=== PATIENT | female | born 1960 | race Caucasian/White ===

== ENCOUNTER 2018-02-28 13:23 | Emergency (ER) | payer MEDICARE ==
[~2018-02-28] VITALS: Ht 154.9 cm; Wt 77.1 kg
[~2018-02-28 13:23] MED LIST: ASPI325 PO; ASPI81EC PO; CHOL10002 PO; CYCL10 PO; ERGO50000 PO; FISH1000 PO; GABA400 PO; HYDACE5 PO; MAGCIT300 PO; NAPR375 PO; PERM5TC TOP; TRAM50 PO
[2018-02-28 14:07] LABS: BASOPHILS ABSOLUTE AUTO 0.03 K/mm3 (0.00-0.23); BASOPHILS PERCENT AUTO 0 % (0-2); EOSINOPHILS ABSOLUTE AUTO 0.09 K/mm3 (0.00-0.68); EOSINOPHILS PERCENT AUTO 1 % (0-6); Hematocrit 36.2 % (33.0-51.0); Hemoglobin 12.3 g/dL (11.5-16.0); IMMATURE GRAN ABSOLUTE AUTO 0.02 K/mm3 (0.00-0.10); IMMATURE GRAN PERCENT AUTO 0 % (0-1); LYMPHOCYTES ABSOLUTE AUTO 2.62 K/mm3 (0.84-5.20); LYMPHOCYTES PERCENT AUTO 39 % (21-46); MONOCYTES ABSOLUTE AUTO 0.41 K/mm3 (0.16-1.47); MONOCYTES PERCENT AUTO 6 % (4-13); Mean Corpuscular HGB 30.4 pg (26.0-34.0); Mean Corpuscular Volume 89 fL (80-100); Mean Platelet Volume 9.3 fL (9.1-12.4); NEUTROPHILS ABSOLUTE AUTO 3.59 K/mm3 (1.96-9.15); NEUTROPHILS PERCENT AUTO 53 % (41-73); Platelet Count 187 K/mm3 (150-400); RDW Coefficient Variation 12.8 % (11.7-14.2); RDW Standard Deviation 41.5 fL (35.1-46.3); Red Blood Cell Count 4.05 M/mm3 (3.80-5.20); White Blood Cell Count 6.76 K/mm3 (4.00-11.30)
[2018-02-28 14:25] LABS: Alanine Aminotransfer (ALT/SGP 35 U/L (12-78); Albumin, Blood 3.4 g/dL (3.4-5.0); Albumin/Globulin Ratio 0.8 (0.8-1.8); Alk Phos 180 U/L (50-136); Anion Gap 8 mmol/L (6-16); Aspartate Aminotrans (AST/SGOT 32 U/L (12-37); Bilirubin, Total 0.5 mg/dL (0.1-1.0); Blood Urea Nitrogen 10 mg/dL (8-24); Bun/Creatinine Ratio 13.4 (12.0-20.0); CO2, Blood 25 mmol/L (21-32); Calcium, Blood 8.4 mg/dL (8.5-10.1); Chloride, Blood 109 mmol/L (98-108); Creatinine, Blood 0.74 mg/dL (0.40-1.00); Globulin, Blood 4.3 g/dL (2.2-4.0); Glomerular Filtration Rate >60 (60-); Glucose, Blood 101 mg/dL (70-99); Potassium, Blood 3.5 mmol/L (3.5-5.5); Sodium, Blood 142 mmol/L (136-145); Total Protein, Blood 7.7 g/dL (6.4-8.2); Troponin I <0.015 ng/mL (0.000-0.040)
[2018-02-28] MEDS ORDERED: NP THYROID15 MG PO (14:53)
[2018-02-28] MEDS ORDERED: ATOR40TA PO (14:54)
[2018-02-28] MEDS ORDERED: Omeprazole20 M1 PO (15:32)
== END 2018-02-28 15:48 | disposition home or self-care (01) ==
LOC: ER 13:23
PROVIDERS: Emergency Medicine
DX: R07.2 Precordial pain (principal); Z79.899 Other long term (current) drug therapy; Z79.82 Long term (current) use of aspirin; F41.9 Anxiety disorder, unspecified
CPT/HCPCS: 36415; 71046; 80053; 84484; 85025; 93005; 93010; 99284-25

== ENCOUNTER → 2021-02-02 | Outpatient (CLI) | payer MEDICARE ==
[~2021-02-02] MED LIST changes: +ATOR40TA PO; +NP THYROID15 MG PO; +Omeprazole20 M1 PO
== END | disposition home or self-care (01) ==
LOC: LAB 10:00 → LAB SHORT 10:00
DX: N32.89 Other specified disorders of bladder (principal); R39.15 Urgency of urination
CPT/HCPCS: 87077; 87086; 87186

== ENCOUNTER 2022-05-15 08:32 | Day surgery (SDC) | payer MEDICARE ==
[~2022-05-15] VITALS: Ht 154.9 cm; Wt 73.0 kg
--- NOTE | 2022-05-15 10:53 | NUR ---
05/15/22 1053 BARBARA ABDULLAHI PT NOW STATES ARM IS STILL SORE FROM BP CUFF, DR PRINCE AWARE.
== END 2022-05-15 11:02 | disposition home or self-care (01) ==
LOC: ORSCSDS 08:32
DX: Z12.11 Encounter for screening for malignant neoplasm of colon (principal); K74.60 Unspecified cirrhosis of liver; D12.5 Benign neoplasm of sigmoid colon; D12.3 Benign neoplasm of transverse colon; D12.2 Benign neoplasm of ascending colon; D12.8 Benign neoplasm of rectum; K57.30 Diverticulosis of large intestine without perforation or abscess without bleeding; Z86.73 Personal history of transient ischemic attack (TIA), and cerebral infarction without residual deficits; E03.9 Hypothyroidism, unspecified; Z79.899 Other long term (current) drug therapy
CPT/HCPCS: 88305; J2704; J7120

== ENCOUNTER 2024-05-24 10:47 | Inpatient (IN) | payer MEDICARE ==
[~2024-05-24] VITALS: Ht 154.9 cm; Wt 79.0 kg
[2024-05-24 11:25] LABS: BASOPHILS ABSOLUTE AUTO 0.02 K/mm3 (0.00-0.23); BASOPHILS PERCENT AUTO 0 % (0-2); EOSINOPHILS PERCENT AUTO 0 % (0-6); Hematocrit 30.3 % (33.0-51.0); Hemoglobin 10.6 g/dL (11.5-16.0); IMMATURE GRAN ABSOLUTE AUTO 0.05 K/mm3 (0.00-0.10); IMMATURE GRAN PERCENT AUTO 1 % (0-1); LYMPHOCYTES ABSOLUTE AUTO 1.34 K/mm3 (0.84-5.20); LYMPHOCYTES PERCENT AUTO 12 % (21-46); MONOCYTES ABSOLUTE AUTO 0.35 K/mm3 (0.16-1.47); MONOCYTES PERCENT AUTO 3 % (4-13); Mean Corpuscular HGB 31.5 pg (26.0-34.0); Mean Corpuscular Volume 90 fL (80-100); Mean Platelet Volume 9.8 fL (9.1-12.4); NEUTROPHILS ABSOLUTE AUTO 9.22 K/mm3 (1.96-9.15); NEUTROPHILS PERCENT AUTO 84 % (41-73); Platelet Count 154 K/mm3 (150-400); RDW Coefficient Variation 14.3 % (11.7-14.2); RDW Standard Deviation 46.4 fL (35.1-46.3); Red Blood Cell Count 3.36 M/mm3 (3.80-5.20); White Blood Cell Count 10.98 K/mm3 (4.00-11.30)
[2024-05-24] MEDS ORDERED: Pantoprazole Sodium 40 MG Injection IV ONE (11:35)
[2024-05-24] MEDS ORDERED: Pantoprazole Sodium 40 MG in NS 50 ML IV SCH (11:35)
[2024-05-24] MEDS ORDERED: NP THYROID (11:37)
[2024-05-24] MEDS ORDERED: ACYC200 PO (11:38)
[2024-05-24 11:42] LABS: Albumin, Blood 3.1 g/dL (3.4-5.0); Albumin/Globulin Ratio 0.7 (0.8-1.8); Bun/Creatinine Ratio 41.1 (12.0-20.0); Calcium, Blood 9.1 mg/dL (8.5-10.1); Creatinine, Blood 0.8 mg/dL (0.40-1.00); Globulin, Blood 4.2 g/dL (2.2-4.0); Potassium, Blood 4.5 mmol/L (3.5-5.5); Total Protein, Blood 7.3 g/dL (6.4-8.2)
[2024-05-24 11:45] LABS: International Normalized Ratio 1.33; Prothrombin Time Results 13.9 Sec (9.7-11.5)
[2024-05-24] MEDS ORDERED: FLU VACC TS2024-25(6MOS UP)/PF 45 MCG/0.5 ML SYRINGE IM ONE (13:55)
[2024-05-24] MEDS ORDERED: CefTRIAXone Sodium 1,000 MG in NS 100 ML IV SCH (14:00)
[2024-05-24] MEDS ORDERED: Gabapentin 400 MG Cap PO SCH ×2 (14:00→21:00)
[2024-05-24 15:31] LABS: Hematocrit 28.4 % (33.0-51.0); Hemoglobin 9.9 g/dL (11.5-16.0)
[2024-05-24 16:19] VITALS: BP 122/74
--- NOTE | 2024-05-24 17:53 | NUR ---
SHIFT SUMMARY PT REMAINS ALERT AND ORIENTED. BP STABLE. HR REMAINS NSR. O2 SATS REMAIN ABOVE 90% ON RA. PT COMPLAINS THAT THE NOISE OF THE IV PUMP IS CAUSING A HEADACHE. PT EDUCATED ON IMPORTANCE OF PROTONIX GTT. TELEVISION TURNED ON TO HELP DISTRACT PT. PT ABLE TO AMBULATE TO BATHROOM NEEDED WITH SBA TO VOID. NO BM OR EMESIS SINCE ADMISSION. WILL REPORT OFF TO ONCOMING JANELL
[2024-05-24 19:26] VITALS: BP 112/60
[2024-05-24] MEDS ORDERED: Octreotide Acetate 50 MCG in NS 50 ML IV STA (19:48)
[2024-05-24 20:20] LABS: Hematocrit 25.6 % (33.0-51.0); Hemoglobin 8.9 g/dL (11.5-16.0)
[2024-05-24] MEDS ORDERED: Octreotide Acetate 500 MCG in NS 250 ML IV SCH (20:30)
[2024-05-25] VITALS (14 sets, daily range): BP systolic 85–111; BP diastolic 48–67
[2024-05-25 05:22] LABS: Hematocrit 26.4 % (33.0-51.0); Hemoglobin 8.5 g/dL (11.5-16.0); Mean Corpuscular HGB 30.8 pg (26.0-34.0); Mean Corpuscular HGB Conc 32.2 g/dL (31.5-36.5); Mean Platelet Volume 10.5 fL (9.1-12.4); Platelet Count 101 K/mm3 (150-400); RDW Coefficient Variation 14.6 % (11.7-14.2); RDW Standard Deviation 50.4 fL (35.1-46.3); Red Blood Cell Count 2.76 M/mm3 (3.80-5.20)
[2024-05-25 05:30] LABS: Mean Corpuscular Volume 96 fL (80-100)
[2024-05-25 05:40] LABS: Bun/Creatinine Ratio 33.4 (12.0-20.0); Calcium, Blood 8.8 mg/dL (8.5-10.1); Creatinine, Blood 0.93 mg/dL (0.40-1.00); Potassium, Blood 4.1 mmol/L (3.5-5.5)
[2024-05-25] MEDS ORDERED: Thyroid 60 MG Tab PO SCH ×2 (06:00→08:07)
[2024-05-25] MEDS ORDERED: Lactated Ringer's 1,000 ML IV SCH (11:40)
--- NOTE | 2024-05-25 12:12 | NUR ---
History, Chart, Medications and Allergies reviewed before start of procedure. Pre-Op teaching done. Pt verbalizes understanding. Patient confirms NPO status and agrees with scheduled surgery.
[2024-05-25] MEDS ORDERED: propofoL 20 ML IV ONE (12:19)
[2024-05-25] MEDS ORDERED: Midazolam HCl 1MG / ML 2ML Vial ONE (12:23)
[2024-05-25 12:26] LABS: Hematocrit 23.5 % (33.0-51.0)
--- NOTE | 2024-05-25 13:02 | NUR ---
05/25/24 Karyna Rivera CONFIRMED AND REVIEWED H&P, MEDCICATIONS, ALLERGIES, MEDICAL HISTORY, RESPIRATORY HISTORY, VITAL SIGNS, 3-LEAD EKG, CONSENTS, AND PHYSICIAN ORDERS. PATIENT CONFIRMS NPO STATUS AND AGREES WITH SCHEDULED PROCEDURE. MONITOR INTACT WITH CONTINUOUS PULSE OXIMETRY, CAPNOGRAPHY, 3-LEAD EKG, INTERMITTENT BP. SUPPLEMENTAL O2 TO BE TITRATED THROUGHOUT PROCEDURE TO MAINTAIN O2 SATURATION ABOVE 90%. PATIENT DETERMINED TO BE ASA APPROPRIATE FOR PROPOFOL SEDATION PRIOR TO START OF PROCEDURE BY DR. MORRISON.
[2024-05-25] MEDS ORDERED: THYROID30 MG PO (14:37)
--- NOTE | 2024-05-25 15:12 | NUR ---
DR. SERRANO CALLED ABOUT HYPOTENSION POST EGD, HE WOULD LIKE TO START THE PT ON NS 150CC/HR FOR A TOTAL OF ONE DAY.
[2024-05-25] MEDS ORDERED: NS 1,000 ML IV SCH (15:15)
--- NOTE | 2024-05-25 17:38 | NUR ---
SHIFT SUMMARY THE PT IS ORIENTED X4, AND WAS VERY ALERT THIS MORNING. SHE WENT FOR AN EGD LATE MORNING/EARLY AFTERNOON AND CAME BACK VERY SOMULENT. AROUND 1600 SHE BECAME MORE ALERT, TOLERATING PO INTAKE. HER BLOOD PRESSURE HAS BEEN SOFT, BUT WERE LOW AFTER HER EGD. DR. SERRANO ORDERED FLUIDS TO HELP. SEE PREVIOUS NOTE. ON TELE THE PT HAS BEEN SR AND DENIES ANY ANGINA OR CHEST PRESSURE. SHE IS ON RA W/ SP02 >93%, SHE DENIES ANY SOB. THE PT HAD AN ABD ULTRASOUND TODAY AND RESULTS PENDING. THREE SIDE RAILS REMAIN UP, CALL LIGHT IS IN REACH, AND BED IN LOW.
[2024-05-25 19:30] LABS: Hematocrit 20.8 % (33.0-51.0); Hemoglobin 7.1 g/dL (11.5-16.0)
[2024-05-26] VITALS (12 sets, daily range): BP systolic 82–115; BP diastolic 50–67
[2024-05-26 02:32] LABS: Hematocrit 19.9 % (33.0-51.0); Hemoglobin 6.9 g/dL (11.5-16.0); Mean Corpuscular HGB 32.2 pg (26.0-34.0); Mean Corpuscular HGB Conc 34.7 g/dL (31.5-36.5); Mean Corpuscular Volume 93 fL (80-100); Mean Platelet Volume 10.2 fL (9.1-12.4); Platelet Count 77 K/mm3 (150-400); RDW Coefficient Variation 14.4 % (11.7-14.2); RDW Standard Deviation 47.7 fL (35.1-46.3); Red Blood Cell Count 2.14 M/mm3 (3.80-5.20); White Blood Cell Count 2.98 K/mm3 (4.00-11.30)
[2024-05-26] MEDS ORDERED: NS 250 ML IV PRN (03:00)
--- NOTE | 2024-05-26 05:18 | NUR ---
PTS HGB RESULTED TO 6.9. RESIDENT NOTIFIED. 1 UNIT PRBCS ORDERED AND TRANSFUSING. NO TRANSFUSION REACTIONS NOTED.
[2024-05-26] MEDS ORDERED: Pantoprazole Sodium 40 MG Tab PO SCH (06:00)
--- NOTE | 2024-05-26 06:07 | NUR ---
PT A&OX4. PTS BPS LOW THROUGHOUT SHIFT. RESIDENT AWARE THAT HGB CONTINUED TO TREND DOWN TO 6.9. ONE UNIT PRBCs TRANFUSING CURRENTLY WITH NO ISSUES. PT CONTINUES TO RECIEVE NS @150CC/HR. PT DID C/O A SLIGHT HEADACHE WITH INTERMITTANT NAUSEA BUT STATES IT IS GOING AWAY AND DOES NOT WANT TO TAKE ANY MEDICATIONS. PT ABLE TO AMBULATED TO BATHROOM NEEDED SBA. NO FURTHER QUESTIONS OR CONCERNS AT THIS TIME. CALL MITCHELL WITHIN REACH.
[2024-05-26 08:27] LABS: Hematocrit 24.9 % (33.0-51.0); Hemoglobin 8.5 g/dL (11.5-16.0); Mean Corpuscular HGB 31.3 pg (26.0-34.0); Mean Corpuscular HGB Conc 34.1 g/dL (31.5-36.5); Mean Corpuscular Volume 92 fL (80-100); Mean Platelet Volume 9.7 fL (9.1-12.4); NRBC ABSOLUTE 0.02 K/mm3 (0.00-0.02); NRBC Auto 0.6 /100 WBC (0.0-0.2); Platelet Count 78 K/mm3 (150-400); RDW Coefficient Variation 14.1 % (11.7-14.2); RDW Standard Deviation 46.5 fL (35.1-46.3); Red Blood Cell Count 2.72 M/mm3 (3.80-5.20); White Blood Cell Count 3.19 K/mm3 (4.00-11.30)
--- NOTE | 2024-05-26 10:41 | NUR ---
ASSUMING CARE ASSUMED CARE OF THIS PATIENT AT 0730. PATIENT IS A+O X4, ABLE TO MAKE NEEDS KNOWN. SBA TO BATHROOM NEEDS ASSITANCE W/ LINES. UP TO CHAIR FOR BREAKFAST, LIEN CHANGED. CALL LIGHT IN REACH, WILL CONTINUE TO TREAT.
[2024-05-26 15:16] LABS: Hematocrit 24.6 % (33.0-51.0); Hemoglobin 8.7 g/dL (11.5-16.0)
--- NOTE | 2024-05-26 16:51 | NUR ---
SHIFT SUMMARY PATIENT IS A+O X4,A BLE TO MAKE NEEDS KNOWN. MOVES ALL EXTERMITIES EQUALLY IN BED, SBA TO THE BATH ROOM. UP TO CHAIR THIS AM. DENIES N/V THIS SHIFT. HGB CONTINUES TO TREND UP THIS SHIFT FROM 6.9 TO 8.5, 1500 DRAW 8.7. PATIENT DENIES ANY SIGNS OR BLEEDING, THIS RN SEEN NO SIGNS OF BLEEDING. VSS THIS SHIFT WITH SYS B/P IN THE LOW 100S. CALL LIGHT IN REACH OF PATIENT, WILL CONTINUE TO TREAT UNTIL END OF SHIFT.
[2024-05-27 04:15] VITALS: BP 90/53
[2024-05-27 04:20] LABS: Hematocrit 24.4 % (33.0-51.0); Hemoglobin 8.5 g/dL (11.5-16.0); Mean Corpuscular HGB 31.8 pg (26.0-34.0); Mean Corpuscular HGB Conc 34.8 g/dL (31.5-36.5); Mean Corpuscular Volume 91 fL (80-100); Mean Platelet Volume 9.5 fL (9.1-12.4); Platelet Count 79 K/mm3 (150-400); RDW Coefficient Variation 14.3 % (11.7-14.2); RDW Standard Deviation 47.3 fL (35.1-46.3); Red Blood Cell Count 2.67 M/mm3 (3.80-5.20)
--- NOTE | 2024-05-27 06:24 | NUR ---
SHIFT SUMMARY PT HAD AN OVERALL UNEVENTFUL NIGHT. ENDORSES GETTING GOOD REST THIS SHIFT. NO BM'S THIS SHIFT. NO S/S BLEEDING. HGB REMAINS STABLE.
[2024-05-27 07:37] VITALS: BP 104/57
[2024-05-27 09:04] LABS: Percent Saturation 20.5 % (15.0-50.0)
--- NOTE | 2024-05-27 10:06 | NUR ---
ASSUMING CARE ASSUMED CARE OF THIS PATIENT AT 0715. PATIENT WAS RESTING IN BED WITH EYES CLOSED. PATIENT AWOKE WITH NO ISSUES FOR MORNING ASSESSMENT AND MEDICATION PASS. VSS. DR. SERRANO ROUNDED ON PATIENT THIS AM, POSSIBLE DISCHARGE LATER TODAY. CALL LIGHT IN REACH OF PATIENT WILL CONTINUE TO TREAT.
[2024-05-27] MEDS ORDERED: FERSU300 PO (11:24)
[2024-05-27] MEDS ORDERED: PANT40 PO (11:24)
--- NOTE | 2024-05-27 13:51 | NUR ---
NURSE NOTE PATIENT DISCHARGE PACKET WENT OVER WITH PT. PERSONAL BELONGINGS GATHERED AND PLACED INTO BAG. MATERIALS AND PROCESSES MANAGER TOOK PATIENT OUT TO CAR OZZIE WHEEL CHAIR.
== END 2024-05-27 13:29 | disposition home or self-care (01) | DRG 442 ==
LOC: ER 10:47 → PCU 10:48
PROVIDERS: Emergency Medicine; ADMIT Internal Medicine
PROC: 0DB68ZX Excision of Stomach, Via Natural or Artificial Opening Endoscopic, Diagnostic (ICD-10-PCS; 2024-05-25)
PROC: 30233N1 Transfusion of Nonautologous Red Blood Cells into Peripheral Vein, Percutaneous Approach (ICD-10-PCS; principal; 2024-05-26)
DX: K76.6 Portal hypertension (principal); D62 Acute posthemorrhagic anemia; K92.2 Gastrointestinal hemorrhage, unspecified; K74.60 Unspecified cirrhosis of liver; K75.81 Nonalcoholic steatohepatitis (NASH); K31.89 Other diseases of stomach and duodenum; Z66 Do not resuscitate; G62.9 Polyneuropathy, unspecified; E03.9 Hypothyroidism, unspecified; F41.9 Anxiety disorder, unspecified; Z88.8 Allergy status to other drugs, medicaments and biological substances; Z79.899 Other long term (current) drug therapy; Z87.19 Personal history of other diseases of the digestive system; Z86.73 Personal history of transient ischemic attack (TIA), and cerebral infarction without residual deficits; Z90.710 Acquired absence of both cervix and uterus; Z98.890 Other specified postprocedural states
CPT/HCPCS: 36415; 36430; 76700; 80048; 80053; 82105; 82728; 83540; 83550; 85014; 85018; 85025; 85027; 85610; 85730; 86850; 86900; 86901; 86923; 88305; 88342; 93005; 93010; 96365; 96366; 96368; 96375; 96376; 99285-25; A9270; C1751; G0378; J0696; J2250; J2354; J2470; J2704; J7030; J7050; J7120; P9016

== ENCOUNTER → 2024-06-03 | Outpatient (CLI) | payer MEDICARE ==
[~2024-06-03] MED LIST changes: +ACYC200 PO; +FERSU300 PO; +NP THYROID; +PANT40 PO; +THYROID30 MG PO
[2024-06-03 18:52] LABS: BASOPHILS ABSOLUTE AUTO 0.02 K/mm3 (0.00-0.23); BASOPHILS PERCENT AUTO 0 % (0-2); EOSINOPHILS ABSOLUTE AUTO 0.02 K/mm3 (0.00-0.68); EOSINOPHILS PERCENT AUTO 0 % (0-6); Hematocrit 33.4 % (33.0-51.0); Hemoglobin 10.9 g/dL (11.5-16.0); IMMATURE GRAN ABSOLUTE AUTO 0.02 K/mm3 (0.00-0.10); IMMATURE GRAN PERCENT AUTO 0 % (0-1); LYMPHOCYTES ABSOLUTE AUTO 1.18 K/mm3 (0.84-5.20); LYMPHOCYTES PERCENT AUTO 23 % (21-46); MONOCYTES ABSOLUTE AUTO 0.56 K/mm3 (0.16-1.47); MONOCYTES PERCENT AUTO 11 % (4-13); Mean Corpuscular HGB 30.6 pg (26.0-34.0); Mean Corpuscular HGB Conc 32.6 g/dL (31.5-36.5); Mean Corpuscular Volume 94 fL (80-100); Mean Platelet Volume 10.4 fL (9.1-12.4); NEUTROPHILS ABSOLUTE AUTO 3.35 K/mm3 (1.96-9.15); NEUTROPHILS PERCENT AUTO 65 % (41-73); Platelet Count 101 K/mm3 (150-400); RDW Coefficient Variation 14.6 % (11.7-14.2); RDW Standard Deviation 50.2 fL (35.1-46.3); Red Blood Cell Count 3.56 M/mm3 (3.80-5.20); White Blood Cell Count 5.15 K/mm3 (4.00-11.30)
[2024-06-03 19:36] LABS: Percent Saturation 8.7 % (15.0-50.0)
== END | disposition home or self-care (01) ==
LOC: LAB 17:46 → LAB SHORT 17:46
PROVIDERS: Nurse Practitioner Family
DX: D50.0 Iron deficiency anemia secondary to blood loss (chronic) (principal)
CPT/HCPCS: 82728; 83540; 83550; 85025

== ENCOUNTER → 2024-07-01 | Outpatient (CLI) | payer MEDICARE ==
[2024-07-01 14:17] LABS: BASOPHILS ABSOLUTE AUTO 0.01 K/mm3 (0.00-0.23); BASOPHILS PERCENT AUTO 0 % (0-2); EOSINOPHILS ABSOLUTE AUTO 0.08 K/mm3 (0.00-0.68); EOSINOPHILS PERCENT AUTO 2 % (0-6); Hematocrit 33.8 % (33.0-51.0); IMMATURE GRAN ABSOLUTE AUTO 0.01 K/mm3 (0.00-0.10); IMMATURE GRAN PERCENT AUTO 0 % (0-1); LYMPHOCYTES ABSOLUTE AUTO 1.05 K/mm3 (0.84-5.20); LYMPHOCYTES PERCENT AUTO 31 % (21-46); MONOCYTES ABSOLUTE AUTO 0.23 K/mm3 (0.16-1.47); MONOCYTES PERCENT AUTO 7 % (4-13); Mean Corpuscular HGB 30.5 pg (26.0-34.0); Mean Corpuscular HGB Conc 32.5 g/dL (31.5-36.5); Mean Corpuscular Volume 94 fL (80-100); Mean Platelet Volume 10.2 fL (9.1-12.4); NEUTROPHILS PERCENT AUTO 59 % (41-73); Platelet Count 109 K/mm3 (150-400); RDW Coefficient Variation 14.3 % (11.7-14.2); RDW Standard Deviation 49.2 fL (35.1-46.3); Red Blood Cell Count 3.61 M/mm3 (3.80-5.20); White Blood Cell Count 3.38 K/mm3 (4.00-11.30)
[2024-07-01 14:19] LABS: Percent Saturation 29.8 % (15.0-50.0)
== END ==
LOC: LAB 12:53 → LAB SHORT 12:53
PROVIDERS: Nurse Practitioner Family
DX: D50.0 Iron deficiency anemia secondary to blood loss (chronic) (principal)
CPT/HCPCS: 82728; 83540; 83550; 85025

== ENCOUNTER → 2024-07-08 | Outpatient (CLI) | payer MEDICARE ==
[2024-07-08 19:39] LABS: BASOPHILS ABSOLUTE AUTO 0.02 K/mm3 (0.00-0.23); BASOPHILS PERCENT AUTO 0 % (0-2); EOSINOPHILS ABSOLUTE AUTO 0.07 K/mm3 (0.00-0.68); EOSINOPHILS PERCENT AUTO 2 % (0-6); Hematocrit 34.5 % (33.0-51.0); Hemoglobin 11.4 g/dL (11.5-16.0); IMMATURE GRAN ABSOLUTE AUTO 0.01 K/mm3 (0.00-0.10); IMMATURE GRAN PERCENT AUTO 0 % (0-1); LYMPHOCYTES ABSOLUTE AUTO 1.26 K/mm3 (0.84-5.20); LYMPHOCYTES PERCENT AUTO 28 % (21-46); MONOCYTES ABSOLUTE AUTO 0.31 K/mm3 (0.16-1.47); MONOCYTES PERCENT AUTO 7 % (4-13); Mean Corpuscular HGB 30.5 pg (26.0-34.0); Mean Corpuscular Volume 92 fL (80-100); Mean Platelet Volume 10.1 fL (9.1-12.4); NEUTROPHILS ABSOLUTE AUTO 2.87 K/mm3 (1.96-9.15); NEUTROPHILS PERCENT AUTO 63 % (41-73); Platelet Count 114 K/mm3 (150-400); RDW Standard Deviation 47.3 fL (35.1-46.3); Red Blood Cell Count 3.74 M/mm3 (3.80-5.20); White Blood Cell Count 4.54 K/mm3 (4.00-11.30)
[2024-07-10 18:29] LABS: HEPATITIS C AB CIA INTERP Low Pos (Negative)
[2024-07-11 16:43] LABS: HCV QNT BY NAAT (IU/ML) Not Detected; HCV QNT BY NAAT (LOG IU/ML) Not Detected; HCV QNT BY NAAT INTERP Not Detected (Not Detected)
== END ==
LOC: LAB SHORT 18:35 → LAB 18:35
PROVIDERS: Nurse Practitioner Family
DX: Z11.59 Encounter for screening for other viral diseases (principal); D50.0 Iron deficiency anemia secondary to blood loss (chronic)
CPT/HCPCS: 85025; 86803; 87522

== ENCOUNTER 2025-06-08 10:31 | Emergency (ER) | payer MEDICARE ==
[~2025-06-08] VITALS: Ht 154.9 cm; Wt 72.6 kg
[2025-06-08 11:36] LABS: BASOPHILS ABSOLUTE AUTO 0.02 K/mm3 (0.00-0.23); BASOPHILS PERCENT AUTO 0 % (0-2); EOSINOPHILS ABSOLUTE AUTO 0.04 K/mm3 (0.00-0.68); EOSINOPHILS PERCENT AUTO 1 % (0-6); Hematocrit 32.7 % (33.0-51.0); Hemoglobin 11.1 g/dL (11.5-16.0); IMMATURE GRAN ABSOLUTE AUTO 0.04 K/mm3 (0.00-0.10); IMMATURE GRAN PERCENT AUTO 1 % (0-1); LYMPHOCYTES ABSOLUTE AUTO 1.19 K/mm3 (0.84-5.20); LYMPHOCYTES PERCENT AUTO 20 % (21-46); MONOCYTES ABSOLUTE AUTO 0.44 K/mm3 (0.16-1.47); MONOCYTES PERCENT AUTO 7 % (4-13); Mean Corpuscular HGB Conc 33.9 g/dL (31.5-36.5); Mean Corpuscular Volume 101 fL (80-100); NEUTROPHILS ABSOLUTE AUTO 4.26 K/mm3 (1.96-9.15); NEUTROPHILS PERCENT AUTO 71 % (41-73); NRBC ABSOLUTE 0.00 K/mm3 (0.00-0.02); NRBC Auto 0.0 /100 WBC (0.0-0.2); Platelet Count 103 K/mm3 (150-400); RDW Coefficient Variation 17.3 % (11.7-14.2); RDW Standard Deviation 63.7 fL (35.1-46.3)
[2025-06-08 11:51] LABS: Alanine Aminotransfer (ALT/SGP 21.0 U/L (12-78); Albumin, Blood 2.5 g/dL (3.4-5.0); Albumin/Globulin Ratio 0.5 (0.8-1.8); Anion Gap 13.0 mmol/L (3-11); Aspartate Aminotrans (AST/SGOT 60.0 U/L (12-37); Bilirubin, Total 5.1 mg/dL (0.1-1.0); Blood Urea Nitrogen 8.0 mg/dL (8-24); CO2, Blood 21.0 mmol/L (21-32); Calcium, Blood 8.4 mg/dL (8.5-10.1); Chloride, Blood 107.0 mmol/L (98-108); Creatinine, Blood 0.71 mg/dL (0.40-1.00); Globulin, Blood 4.6 g/dL (2.2-4.0); Glucose, Blood 141.0 mg/dL (70-99); Potassium, Blood 3.6 mmol/L (3.5-5.5); Sodium, Blood 137.0 mmol/L (136-145); Total Protein, Blood 7.1 g/dL (6.4-8.2)
[2025-06-08 11:57] LABS: Prothrombin Time Results 18.3 Sec (9.7-11.5)
[2025-06-08 12:12] LABS: Source, Urine Clean Catch
[2025-06-08 12:20] LABS: Bilirubin, Urine Neg (Neg); Color, Urine Yellow (P-Yellow); Glucose Qualitative, Urine Neg (Neg); Ketones, Urine Neg (Neg); Leukocyte Esterase, Urine Neg (Neg); Protein, Urine 1+ (Neg); Specific Gravity, Urine 1.015 (1.003-1.022); Urobilinogen, Urine 2+ (Normal)
[2025-06-08 13:04] LABS: Red Blood Cells, Urine 0-2 /hpf (0-2); White Blood Cells, Urine 0-2 /hpf (0-5)
[2025-06-08 13:20] LABS: Bilirubin, Direct 1.8 mg/dL (0.0-0.3)
[2025-06-08 14:25] LABS: Automated BF WBC Count 0.229 K/mm3 (0-999)
[2025-06-08 14:46] LABS: Glucose, Body Fluid 130 mg/dL; RBC Count, Body Fluid 51 /mm3 (0-0)
[2025-06-08 14:47] LABS: Color, Body Fluid Yellow (None-Yellow)
[2025-06-08 14:58] VITALS: BP 112/54
[2025-06-08 16:00] LABS: Lymphocytes, Fluid 49.0 % (0.0-18.0); Monocytes/Mononuclear, Fluid 30.0 % (0.0-50.0); Neutrophils, Fluid 10.0 % (0.0-25.0); Total Cell Count, Body Fluid 100
== END 2025-06-08 11:26 | disposition home or self-care (01) ==
LOC: ER 10:31
PROVIDERS: Physician Assistant
DX: R18.8 Other ascites (principal); E03.9 Hypothyroidism, unspecified; Z86.73 Personal history of transient ischemic attack (TIA), and cerebral infarction without residual deficits; Z79.899 Other long term (current) drug therapy; Z88.1 Allergy status to other antibiotic agents
CPT/HCPCS: 49083; 51798; 71046; 74177; 80053; 81001; 82248; 82945; 83690; 84157; 85025; 85610; 87070; 87205; 89051; 99284-25; Q9967

== ENCOUNTER 2025-06-15 09:32 | Emergency (ER) | payer MEDICARE ==
[~2025-06-15] VITALS: Ht 154.9 cm; Wt 68.0 kg
[2025-06-15 10:06] LABS: BASOPHILS ABSOLUTE AUTO 0.03 K/mm3 (0.00-0.23); BASOPHILS PERCENT AUTO 1 % (0-2); EOSINOPHILS ABSOLUTE AUTO 0.08 K/mm3 (0.00-0.68); EOSINOPHILS PERCENT AUTO 1 % (0-6); Hematocrit 34.7 % (33.0-51.0); Hemoglobin 11.6 g/dL (11.5-16.0); IMMATURE GRAN ABSOLUTE AUTO 0.02 K/mm3 (0.00-0.10); IMMATURE GRAN PERCENT AUTO 0 % (0-1); LYMPHOCYTES ABSOLUTE AUTO 1.41 K/mm3 (0.84-5.20); LYMPHOCYTES PERCENT AUTO 23 % (21-46); MONOCYTES ABSOLUTE AUTO 0.43 K/mm3 (0.16-1.47); MONOCYTES PERCENT AUTO 7 % (4-13); Mean Corpuscular HGB Conc 33.4 g/dL (31.5-36.5); Mean Corpuscular Volume 102 fL (80-100); NEUTROPHILS ABSOLUTE AUTO 4.06 K/mm3 (1.96-9.15); NEUTROPHILS PERCENT AUTO 67 % (41-73); NRBC ABSOLUTE 0.00 K/mm3 (0.00-0.02); NRBC Auto 0.0 /100 WBC (0.0-0.2); Platelet Count 105 K/mm3 (150-400); RDW Coefficient Variation 17.2 % (11.7-14.2); RDW Standard Deviation 64.4 fL (35.1-46.3)
[2025-06-15 10:23] LABS: Prothrombin Time Results 17.7 Sec (9.7-11.5)
[2025-06-15 10:33] LABS: Alanine Aminotransfer (ALT/SGP 24.0 U/L (12-78); Albumin, Blood 2.4 g/dL (3.4-5.0); Albumin/Globulin Ratio 0.5 (0.8-1.8); Anion Gap 11.0 mmol/L (3-11); Aspartate Aminotrans (AST/SGOT 64.0 U/L (12-37); Bilirubin, Total 5.4 mg/dL (0.1-1.0); Blood Urea Nitrogen 8.0 mg/dL (8-24); CO2, Blood 22.0 mmol/L (21-32); Calcium, Blood 8.4 mg/dL (8.5-10.1); Chloride, Blood 108.0 mmol/L (98-108); Creatinine, Blood 0.71 mg/dL (0.40-1.00); Globulin, Blood 4.7 g/dL (2.2-4.0); Glucose, Blood 154.0 mg/dL (70-99); Potassium, Blood 4.1 mmol/L (3.5-5.5); Sodium, Blood 137.0 mmol/L (136-145); Total Protein, Blood 7.1 g/dL (6.4-8.2)
[2025-06-15] MEDS ORDERED: Lasix20 MG PO (16:14)
[2025-06-15 16:33] VITALS: BP 129/84
== END 2025-06-15 16:33 | disposition home or self-care (01) ==
LOC: ER 09:32
PROVIDERS: Emergency Medicine
DX: R18.8 Other ascites (principal); Z88.8 Allergy status to other drugs, medicaments and biological substances; Z79.899 Other long term (current) drug therapy; Z90.710 Acquired absence of both cervix and uterus
CPT/HCPCS: 76705; 80053; 85025; 85610; 99284-25